=== PATIENT | female | born 1990 | race Caucasian/White ===

== ENCOUNTER 2019-04-03 00:17 | Emergency (ER) | payer MEDICAID ==
[~2019-04-03] VITALS: Ht 167.6 cm; Wt 95.5 kg
[2019-04-03] MEDS ORDERED: LEXAPRO20 M1 PO (00:48)
[2019-04-03] MEDS ORDERED: DESYREL50 MG PO (00:52)
[2019-04-03] MEDS ORDERED: PRAZOSIN (00:52)
[2019-04-03 01:45] VITALS: BP 134/78
== END 2019-04-03 01:45 | disposition home or self-care (01) ==
LOC: ED 00:17
DX: S61.210A Laceration without foreign body of right index finger without damage to nail, initial encounter (principal); S61.212A Laceration without foreign body of right middle finger without damage to nail, initial encounter; F17.210 Nicotine dependence, cigarettes, uncomplicated; F32.9 Major depressive disorder, single episode, unspecified; F41.9 Anxiety disorder, unspecified; G47.00 Insomnia, unspecified; W26.1XXA Contact with sword or dagger, initial encounter; Y92.009 Unspecified place in unspecified non-institutional (private) residence as the place of occurrence of the external cause

== ENCOUNTER → 2019-04-09 | Outpatient (CLI) | payer MEDICAID ==
[2019-04-03 01:45] VITALS: BP 134/78
[~2019-04-09] MED LIST: DESYREL50 MG PO; LEXAPRO20 M1 PO; PRAZOSIN
--- NOTE | 2019-04-09 17:55 | NUR ---
6 sutures removed from 2nd digit, 4 sutures removed from 3rd digit, no bleeding, edges CDI
== END ==
LOC: AMSURD 17:30
DX: Z48.02 Encounter for removal of sutures (principal)

== ENCOUNTER 2022-11-08 17:59 | Emergency (ER) | payer MEDICAID ==
[~2022-11-08] VITALS: Ht 167.6 cm; Wt 103.3 kg
[~2022-11-08 17:59] MED LIST changes: +ZOFRAN ODT4 MG PO
[2022-11-08 18:10] VITALS: BP 103/79
== END 2022-11-08 19:19 | disposition home or self-care (01) ==
LOC: ED 17:59
DX: S29.012A Strain of muscle and tendon of back wall of thorax, initial encounter (principal); M62.830 Muscle spasm of back; X50.1XXA Overexertion from prolonged static or awkward postures, initial encounter; Y92.511 Restaurant or cafe as the place of occurrence of the external cause; Y99.0 Civilian activity done for income or pay
CPT/HCPCS: J1885; J2360